=== PATIENT | female | born 1995 | race Two or more races ===

== ENCOUNTER 2023-08-24 04:25 | Inpatient (IN) | payer BC ==
[2023-08-24] MEDS ORDERED: AMPICILLIN SODIUM 2 GM VIAL ONE (16:56)
[2023-08-24] MEDS: AMPICILLIN - 2 GM in SODIUM CHLORIDE 100 ML IVPB ONE (17:05)
[2023-08-24] MEDS: ELECTROLYTE-148 SOLN 1,000 ML IV SCH ×2 (17:05→18:25)
[2023-08-24 17:48] VITALS: BMI 38.2
[2023-08-24] MEDS ORDERED: BUTORPHANOL TARTRATE 2 MG/ML VIAL ONE ×2 (18:15→20:55)
[2023-08-24] MEDS ORDERED: PROMETHAZINE HCL 25 MG/1 ML VIAL ONE ×2 (18:16→20:55)
[2023-08-24] MEDS: BUTORPHANOL TARTRATE 2 MG/ML VIAL IVPB ONE (18:20)
[2023-08-24] MEDS: PROMETHAZINE HCL 25 MG/1 ML VIAL IVPB ONE ×2 (18:20→21:02)
[2023-08-24] MEDS: AMPICILLIN SODIUM 2 GM VIAL IVPB ONE (18:25)
[2023-08-24 19:19] LABS: BASO % 0.1 % (0-2.0); EOS % 1.4 % (0-4.5); HEMATOCRIT 35.5 % (32.4-45.2); HEMOGLOBIN 12.1 GM/dL (10.7-15.3); MCH 28.7 pg (25.7-33.7); MEAN CELL VOLUME 84.6 fl (80-96); MEAN PLT VOLUME 8.2 fl (7.5-11.1); MONO % 5.8 % (3.8-10.2); NEUT % 77.7 % (42.8-82.8); PLATELET COUNT 204 10^3/uL (134-434); WHITE BLOOD COUNT 11.3 K/mm3 (4.0-10.0)
[2023-08-24 19:26] LABS: INR 0.98 (0.83-1.09); PROTHROMBIN TIME (PATIENT) 11.3 SEC (9.7-13.0)
[2023-08-24 19:28] LABS: ACTIVATED PTT 31.5 SECONDS (25.2-36.5)
[2023-08-24 19:34] LABS: POTASSIUM 3.9 mmol/L (3.5-5.1)
[2023-08-24 19:36] LABS: BLOOD UREA NITROGEN 9.3 mg/dL (7-18); CALCIUM 8.6 mg/dL (8.5-10.1)
[2023-08-24 19:37] LABS: ALBUMIN 2.8 g/dl (3.4-5.0)
[2023-08-24 19:40] LABS: CREATININE 0.7 mg/dL (0.55-1.3)
[2023-08-24 19:41] LABS: BILIRUBIN,TOTAL 0.5 mg/dL (0.2-1); TOT PROT 6.3 g/dl (6.4-8.2)
[2023-08-24] MEDS ORDERED: OXYTOCIN 20 UNITS in 0.9% NS 20 UNIT/1,000 ML INFUS.BAG IV ONE (20:06)
[2023-08-24] MEDS ORDERED: AMPICILLIN SODIUM 1 GM VIAL ONE (20:06)
[2023-08-24] MEDS ORDERED: LIDOCAINE HCL 1% PRESERVATIVE FREE - 30ML VIAL ONE (20:06)
[2023-08-24] MEDS: AMPICILLIN - 1 GM in SODIUM CHLORIDE 100 ML IVPB SCH (20:10)
[2023-08-24] MEDS: OXYTOCIN 20 UNITS in 0.9% NS 20 UNIT/1,000 ML INFUS.BAG IV SCH (20:48)
[2023-08-24] MEDS: METHYLERGONOVINE MALEATE 0.2 MG/1 ML AMP IM ONE (20:51)
[2023-08-24] MEDS: BUTORPHANOL TARTRATE 2 MG/ML VIAL IVPUSH ONE (21:02)
[2023-08-24 21:07] LABS: CORD PCO2 65.6 mmHg (30-78); CORD pH 7.182 (7.14-7.44)
[2023-08-24 21:08] LABS: CORD BASE EXCESS -6.4 mmol/L (0-2); CORD HCO3 20.8 mmHg (20-29); CORD PCO2 47.1 mmHg (30-78); CORD pH 7.262 (7.14-7.44)
[2023-08-24] MEDS ORDERED: MISOPROSTOL 200 MCG TABLET ONE (21:08)
[2023-08-24] MEDS: MISOPROSTOL 200 MCG TABLET PR ONE (21:10)
[2023-08-24] MEDS ORDERED: BISACODYL 10 MG SUPP.RECT RC PRN (21:42)
[2023-08-24] MEDS ORDERED: ACETAMINOPHEN 325 MG TABLET (FP) PO PRN (21:42)
[2023-08-24] MEDS ORDERED: BENZOCAINE 28 GM HEMORRHOIDAL OINTMENT TP PRN (21:42)
[2023-08-24] MEDS ORDERED: oxyCODONE HCL 5 MG TABLET PO PRN (21:42)
[2023-08-24] MEDS ORDERED: METHYLERGONOVINE MALEATE 0.2 MG/1 ML AMP IM PRN (21:42)
[2023-08-25] MEDS: BENZOCAINE 20% 57 GM BOTTLE TP PRN (00:07)
[2023-08-25] MEDS: WITCH HAZEL 50% (TUCKS) 40 PAD/JAR PAD TP PRN (00:08)
[2023-08-25] MEDS: IBUPROFEN 600 MG TABLET (FP) PO PRN (00:08)
[2023-08-25 06:50] LABS: BASO % 0.1 % (0-2.0); EOS % 0.2 % (0-4.5); HEMATOCRIT 32.2 % (32.4-45.2); HEMOGLOBIN 11.4 GM/dL (10.7-15.3); LYMPH % 9.8 % (8-40); MCHC 35.3 g/dl (32.0-36.0); MEAN PLT VOLUME 8.2 fl (7.5-11.1); MONO % 5.3 % (3.8-10.2); NEUT % 84.6 % (42.8-82.8); PLATELET COUNT 172 10^3/uL (134-434); RBC 3.79 M/mm3 (3.60-5.2); RDW 13.7 % (11.6-15.6); WHITE BLOOD COUNT 18.2 K/mm3 (4.0-10.0)
[2023-08-25] MEDS ORDERED: SENNOSIDES/DOCUSATE COMBO (SENNA PLUS) TABLET (UD) PO PRN (22:00)
[2023-08-26 10:52] VITALS: BP 118/75; PULSE 107; RESP 16; TEMP 98.1
[2023-09-06 10:15] LABS: POC NITRAZINE POS
== END 2023-08-26 13:00 | disposition home or self-care (01) | DRG 806 ==
LOC: JLDR 04:25 → UNDOADMIN 04:25 → JLDR 16:25 → J3W 08-25 00:05
PROVIDERS: ADMIT Obstetrics & Gynecology; ATTEND Obstetrics & Gynecology
PROC: 0W8NXZZ Division of Female Perineum, External Approach (ICD-10-PCS; principal; 2023-08-24)
PROC: 10E0XZZ Delivery of Products of Conception, External Approach (ICD-10-PCS; 2023-08-24)
DX: O69.81X0 Labor and delivery complicated by cord around neck, without compression, not applicable or unspecified (principal); O72.1 Other immediate postpartum hemorrhage; Z37.0 Single live birth; O99.824 Streptococcus B carrier state complicating childbirth; Z3A.39 39 weeks gestation of pregnancy
CPT/HCPCS: 36415; 36600; 59409; 80053; 82803; 83986-QW; 85025; 85610; 85730; 86780; 86850; 86900; 86901